=== PATIENT | female | born 1990 | race Two or more races ===

== ENCOUNTER 2021-08-07 13:30 | Emergency (ER) | payer OTHER ==
[~2021-08-07] VITALS: Ht 152.4 cm; Wt 61.7 kg
[2021-08-07 14:24] LABS: Urine Bacteria NONE SEEN /hpf (None Seen); Urine Blood Negative /uL (Negative); Urine Specific Gravity 1.026 (1.001-1.035); Urine WBC 1 /hpf (0 - 5)
[2021-08-07 14:43] LABS: Basophils # (auto) 0 10 ^3/uL (0-0.2); Basophils % (auto) 0.5 % (0.0-2.0); Eosinophils # (auto) 0.1 10 ^3/uL (0-0.8); Eosinophils % (auto) 1.1 % (0.0-7.0); Hematocrit 45.6 % (36.0-46.0); Hemoglobin 15.1 g/dL (12.2-16.2); Lymphocytes # (auto) 3.1 10 ^3/uL (0.4-5.4); Lymphocytes % (auto) 31.1 % (10.0-50.0); Mean Corpuscular Hemoglobin 32.2 pg (28.0-32.0); Mean Corpuscular Volume 97.5 fL (80.0-100.0); Neutrophils # (auto) 5.8 10 ^3/uL (1.6-8.6); Neutrophils % (auto) 57.3 % (37.0-80.0); Nucleated Red Blood Cells % 0.1 %; Red Blood Cells 4.67 10^6/uL (4.0-5.20)
[2021-08-07 15:01] LABS: Albumin 3.5 g/dL (3.4-5.0); BUN/Creatinine Ratio 26.7; Calcium 8.5 mg/dL (8.5-10.1); Potassium 4.2 mmol/L (3.5-5.1)
[2021-08-07 15:05] LABS: Bilirubin, Total 0.3 mg/dL (0.2-1.0); Total Protein 6.9 g/dL (6.4-8.2)
[2021-08-07] MEDS ORDERED: OXYCODONE W/ ACETAMINOPHEN 5/325MG TABLET PO ONE (18:00)
[2021-08-07 21:00] VITALS: BP 105/54
== END 2021-08-07 21:26 | disposition home or self-care (01) ==
LOC: ER 13:30
DX: R10.11 Right upper quadrant pain (principal); R11.2 Nausea with vomiting, unspecified; Z90.49 Acquired absence of other specified parts of digestive tract
CPT/HCPCS: 36415; 74176; 80053; 81001; 81025; 83690; 85025

== ENCOUNTER 2021-09-09 15:33 | Emergency (ER) | payer OTHER ==
[~2021-09-09] VITALS: Ht 152.4 cm; Wt 61.7 kg
[2021-09-09 21:38] VITALS: BP 123/66
== END 2021-09-09 19:50 | disposition home or self-care (01) ==
LOC: ER 15:33
DX: U07.1 COVID-19 (principal); R50.9 Fever, unspecified; R51.9 Headache, unspecified; R53.83 Other fatigue; Z90.49 Acquired absence of other specified parts of digestive tract
CPT/HCPCS: 36415; 71045; 87426; 93005

== ENCOUNTER 2022-10-31 18:26 | Inpatient (IN) | payer OTHER ==
[~2022-10-31] VITALS: Ht 152.4 cm; Wt 71.0 kg
[2022-10-31 19:17] LABS: Basophils # (auto) 0.1 10 ^3/uL (0-0.2); Basophils % (auto) 0.7 % (0.0-2.0); Eosinophils # (auto) 0.1 10 ^3/uL (0-0.8); Eosinophils % (auto) 0.9 % (0.0-7.0); Hematocrit 40.8 % (36.0-46.0); Hemoglobin 13.8 g/dL (12.2-16.2); Lymphocytes # (auto) 3.3 10 ^3/uL (0.4-5.4); Lymphocytes % (auto) 31.2 % (10.0-50.0); Mean Corpuscular Hemoglobin 32.8 pg (28.0-32.0); Mean Corpuscular Hgb Conc. 33.9 g/dL (32.0-36.0); Mean Corpuscular Volume 96.7 fL (80.0-100.0); Neutrophils # (auto) 6.1 10 ^3/uL (1.6-8.6); Neutrophils % (auto) 58.2 % (37.0-80.0); Red Blood Cells 4.22 10^6/uL (4.0-5.20); Red Cell Distribution Width 14.1 % (11.8-14.3); White Blood Cell 10.6 10^3/uL (4.4-10.8)
[2022-10-31 19:38] LABS: INR 0.92 (0.9-1.15)
[2022-10-31 19:44] LABS: Albumin 3.5 g/dL (3.4-5.0); BUN/Creatinine Ratio 24.1; Calcium 8.1 mg/dL (8.5-10.1); Potassium 3.3 mmol/L (3.5-5.1)
[2022-10-31 19:46] LABS: Bilirubin, Total 0.3 mg/dL (0.2-1.0); Total Protein 6.6 g/dL (6.4-8.2)
[2022-10-31] MEDS ORDERED: methylPREDNISolone SOD SUCC 125 MG/2 ML VL IV ONE (22:00)
[2022-10-31] MEDS ORDERED: ACETAMINOPHEN 325 MG TAB PO PRN (22:45)
[2022-10-31] MEDS: POTASSIUM CHL 20MEQ/100ML 100 ML IV SCH (22:45)
[2022-10-31] MEDS ORDERED: DOCUSATE SOD 100 MG CAP PO PRN (22:45)
[2022-10-31] MEDS ORDERED: ONDANSETRON HCL 4 MG/2 ML VIAL IV PRN (22:45)
[2022-11-01] MEDS ORDERED: MORPHINE SULFATE INJ 2 MG/ml SYRG IV PRN
[2022-11-01] MEDS: POTASSIUM CHL 20MEQ/100ML 100 ML IV SCH ×3 (00:45→09:22)
[2022-11-01 01:58] LABS: Urine Bacteria MANY /hpf (None Seen); Urine Blood Negative /uL (Negative); Urine Mucus MODERATE (None Seen); Urine WBC 15 /hpf (0 - 5)
[2022-11-01] MEDS: HYDROcodone-ACET 5/325MG TAB PO PRN ×4 (02:55→18:37)
[2022-11-01 05:35] LABS: Albumin 3.6 g/dL (3.4-5.0); Calcium 8.1 mg/dL (8.5-10.1); Potassium 3.2 mmol/L (3.5-5.1)
[2022-11-01] MEDS: SODIUM CHLOR 0.9% PF (SALINE LOCK) 10ML VIAL/SYR IV SCH ×3 (05:35→21:36)
[2022-11-01 05:38] LABS: BUN/Creatinine Ratio 20.3; Basophils # (auto) 0 10 ^3/uL (0-0.2); Basophils % (auto) 0.2 % (0.0-2.0); Bilirubin, Total 0.4 mg/dL (0.2-1.0); Eosinophils # (auto) 0.1 10 ^3/uL (0-0.8); Eosinophils % (auto) 0.6 % (0.0-7.0); Hematocrit 41.7 % (36.0-46.0); Hemoglobin 13.8 g/dL (12.2-16.2); Lymphocytes # (auto) 3.3 10 ^3/uL (0.4-5.4); Lymphocytes % (auto) 29.9 % (10.0-50.0); Mean Corpuscular Hemoglobin 32.4 pg (28.0-32.0); Mean Corpuscular Hgb Conc. 33.2 g/dL (32.0-36.0); Mean Corpuscular Volume 97.6 fL (80.0-100.0); Monocytes # (auto) 0.9 10 ^3/uL (0-1.3); Monocytes % (auto) 8.5 % (0.0-12.0); Neutrophils # (auto) 6.7 10 ^3/uL (1.6-8.6); Neutrophils % (auto) 60.8 % (37.0-80.0); Nucleated Red Blood Cells % 0.1 %; Red Blood Cells 4.27 10^6/uL (4.0-5.20); Red Cell Distribution Width 14.2 % (11.8-14.3); Total Protein 7.3 g/dL (6.4-8.2); White Blood Cell 11.1 10^3/uL (4.4-10.8)
[2022-11-01] MEDS: methylPREDNISolone SOD SUCC 40 MG/ML VL IV SCH ×3 (06:01→21:36)
[2022-11-01] MEDS: FAMOTIDINE (10MG/ML) 2ML VL IV SCH ×2 (09:22→21:36)
[2022-11-01 16:21] VITALS: BP 120/78
[2022-11-01] MEDS ORDERED: PRE5T PO (17:01)
[2022-11-01] MEDS ORDERED: FOLITAB22 PO (17:01)
[2022-11-01] MEDS ORDERED: METH2.5T PO (17:01)
[2022-11-01 17:04] VITALS: BP 120/79
[2022-11-01] MEDS: NITROGLYCERIN 0.4 MG SL TAB SL PRN ×2 (17:07→17:25)
[2022-11-01 22:00] VITALS: BP 120/73
[2022-11-02 05:00] VITALS: BP 115/64
[2022-11-02] MEDS: SODIUM CHLOR 0.9% PF (SALINE LOCK) 10ML VIAL/SYR IV SCH ×3 (05:49→21:40)
[2022-11-02] MEDS: methylPREDNISolone SOD SUCC 40 MG/ML VL IV SCH ×3 (05:57→21:40)
[2022-11-02 09:00] VITALS: BP 116/72
[2022-11-02] MEDS: FAMOTIDINE (10MG/ML) 2ML VL IV SCH ×2 (09:05→21:40)
[2022-11-02] MEDS: HYDROcodone-ACET 5/325MG TAB PO PRN ×2 (09:05→20:18)
[2022-11-02 13:00] VITALS: BP 119/58
[2022-11-02 17:00] VITALS: BP 117/57
[2022-11-02 22:00] VITALS: BP 107/62
[2022-11-03 05:00] VITALS: BP 108/64
[2022-11-03] MEDS: SODIUM CHLOR 0.9% PF (SALINE LOCK) 10ML VIAL/SYR IV SCH ×3 (06:10→20:58)
[2022-11-03] MEDS: methylPREDNISolone SOD SUCC 40 MG/ML VL IV SCH ×3 (06:11→20:58)
[2022-11-03] MEDS: FAMOTIDINE (10MG/ML) 2ML VL IV SCH ×2 (08:21→20:58)
[2022-11-03] MEDS: HYDROcodone-ACET 5/325MG TAB PO PRN ×3 (08:22→20:57)
[2022-11-03 09:00] VITALS: BP 115/71
[2022-11-03] MEDS ORDERED: IOHEXOL 350 MG/ML 100ML IJ ONE (12:26)
[2022-11-03 13:03] VITALS: BP 110/56
[2022-11-03 17:00] VITALS: BP 126/77
[2022-11-03 22:00] VITALS: BP 118/63
[2022-11-04 05:00] VITALS: BP 112/66
[2022-11-04] MEDS: SODIUM CHLOR 0.9% PF (SALINE LOCK) 10ML VIAL/SYR IV SCH ×3 (05:24→21:01)
[2022-11-04] MEDS: HYDROcodone-ACET 5/325MG TAB PO PRN ×4 (05:31→19:01)
[2022-11-04] MEDS: methylPREDNISolone SOD SUCC 40 MG/ML VL IV SCH ×3 (05:31→21:00)
[2022-11-04] MEDS: ENOXAPARIN SOD 40 MG/0.4 ML SYRINGE SC SCH (07:57)
[2022-11-04] MEDS: FAMOTIDINE (10MG/ML) 2ML VL IV SCH ×2 (07:57→21:01)
[2022-11-04 08:18] VITALS: BP 108/62
[2022-11-04 12:59] VITALS: BP 111/66
[2022-11-04 17:01] VITALS: BP 113/68
[2022-11-04 22:00] VITALS: BP 116/77
[2022-11-05 05:00] VITALS: BP 119/66
[2022-11-05] MEDS: SODIUM CHLOR 0.9% PF (SALINE LOCK) 10ML VIAL/SYR IV SCH ×2 (05:47→13:44)
[2022-11-05] MEDS: methylPREDNISolone SOD SUCC 40 MG/ML VL IV SCH ×2 (05:47→13:38)
[2022-11-05 09:00] VITALS: BP 121/67
[2022-11-05] MEDS: HYDROcodone-ACET 5/325MG TAB PO PRN (10:59)
[2022-11-05] MEDS: ENOXAPARIN SOD 40 MG/0.4 ML SYRINGE SC SCH (11:00)
[2022-11-05] MEDS: FAMOTIDINE (10MG/ML) 2ML VL IV SCH (11:00)
[2022-11-05] MEDS ORDERED: FOLITAB22 PO (11:40)
[2022-11-05 12:54] VITALS: BP 139/76
[2022-11-05] MEDS ORDERED: METHOTREXATE 2.5 MG TAB PO SCH (13:00)
== END 2022-11-05 15:08 | disposition home or self-care (01) | DRG 346 ==
LOC: ER 18:26 → TELE 23:54 → TELE-EAST 11-01 16:05
PROVIDERS: ADMIT Nurse Practitioner Family; ATTEND Internal Medicine
DX: M32.9 Systemic lupus erythematosus, unspecified (principal); J96.01 Acute respiratory failure with hypoxia; N39.0 Urinary tract infection, site not specified; R07.89 Other chest pain; Z20.822 Contact with and (suspected) exposure to COVID-19; E87.6 Hypokalemia; J98.11 Atelectasis; Z83.3 Family history of diabetes mellitus; Z90.49 Acquired absence of other specified parts of digestive tract
CPT/HCPCS: 36415; 71045; 71275; 80053; 81001; 81025; 83735; 83880; 84484; 85025; 85610; 85652; 85730; 86141; 87426; 93005; 93306; 93970; 96360; 96361; G0378; J2405; J3480; J3490